=== PATIENT | male | born 2000 | race American Indian/Alaskan Native ===

== ENCOUNTER 2020-03-11 23:11 | Emergency (ER) | payer SELFPAY ==
[2020-03-12] MEDS ORDERED: LIDOCAINE-MPF (1%) 10 MG/1 ML VIAL 5 ML INFILTRATI ONE (00:31)
--- NOTE | 2020-03-12 00:34 | Emergency Department Report ---
<AUDREY PEREZ - Last Filed: 03/12/20 00:32> ED General Adult HPI - General Chief complaint: Neck Pain/Injury Stated complaint: SORE THROAT Time Seen by Provider: 03/12/20 00:28 Source: patient Mode of arrival: Ambulatory Limitations: No Limitations - History of Present Illness Initial comments: 19-year-old -[place] male presents to the emergency room complaining of lymph nodes in his neck and groin area and has been swollen for more than a week with diarrhea. Patient denies any fever no nausea no vomiting no abdominal pain chest pain or shortness of breath. Patient reports he had discharge a couple weeks ago and was treated for chlamydia. Patient states that visit was telemedicine. Patient complains of just not feeling good increase sleepiness decreased appetite. Patient currently takes no medications and has no known drug allergies - Related Data Previous Rx's Medication Instructions Recorded Last Taken Type Amoxicillin/Potassium Clav 1 each PO BID 10 Days #20 tablet 03/12/20 Unknown Rx [Augmentin 875-125 Tablet] Azithromycin [Zithromax TAB] 2,000 mg PO QDAY 1 Days #4 tablet 03/12/20 Unknown Rx methylPREDNISolone [Medrol 4MG 4 mg PO DAILY 6 Days #1 tab.ds.pk 03/12/20 Unknown Rx DOSEPAK (21 tabs)] Allergies Allergy/AdvReac Type Severity Reaction Status Date / Time No Known Allergies Allergy Unverified 03/12/20 00:30 ED Past Medical Hx - Past Medical History Previous Medical History?: No - Surgical History Past Surgical History?: No - Social History Smoking Status: Current Every Day Smoker Substance Use Type: Marijuana - Medications Home Medications: Home Medications Medication Instructions Recorded Confirmed Last Taken Type Amoxicillin/Potassium Clav 1 each PO BID 10 Days #20 tablet 03/12/20 Unknown Rx [Augmentin 875-125 Tablet] Azithromycin [Zithromax TAB] 2,000 mg PO QDAY 1 Days #4 tablet 03/12/20 Unknown Rx methylPREDNISolone [Medrol 4MG 4 mg PO DAILY 6 Days #1 tab.ds.pk 03/12/20 Unknown Rx DOSEPAK (21 tabs)] ED Physical Exam - General Limitations: No Limitations ED Medical Decision Making - Medical Decision Making 19-year-old -[place] male presents to the emergency room complaining of lymph nodes in his neck and groin area and has been swollen for more than a week with diarrhea. Patient denies any fever no nausea no vomiting no abdominal pain chest pain or shortness of breath. Patient reports he had discharge a couple weeks ago and was treated for chlamydia. Patient states that visit was telemedicine. Patient complains of just not feeling good increase sleepiness decreased appetite. Patient currently takes no medications and has no known drug allergies ED Disposition Clinical Impression: Sore throat, LAD (lymphadenopathy), cervical, LAD (lymphadenopathy), inguinal Pharyngitis Qualifiers: Pharyngitis/tonsillitis etiology: unspecified etiology Qualified Code(s): J02.9 - Acute pharyngitis, unspecified Disposition: DC- TO HOME OR SELFCARE Condition: Stable Instructions: Pharyngitis (ED), Sexually Transmitted Diseases in Adolescents (ED), Safe Sex (ED), Sexually Transmitted Diseases (ED), Chlamydia Infection (ED) Additional Instructions: Patient to follow-up with primary care in 2 to 3 days. Patient to follow-up with health department in 2 to 3 days. Patient to rest. Patient to increase water. Patient to avoid strenuous exercise or heavy lifting or sexual activity until cleared by health department and primary care. Patient to practice safe sex after cleared by health department and primary care. Patient to take Tylenol or ibuprofen as needed for pain. Patient to take meds as directed. Patient to return to the ER if condition worsens, changes or new symptoms arise. Prescriptions: Amoxicillin/Potassium Clav [Augmentin 875-125 Tablet] 1 each PO BID 10 Days #20 tablet methylPREDNISolone [Medrol 4MG DOSEPAK (21 tabs)] 4 mg PO DAILY 6 Days #1 tab.ds.pk Azithromycin [Zithromax TAB] 2,000 mg PO QDAY 1 Days #4 tablet Referrals: PRIMARY MD NOÉ [Primary Care Provider] - 2-3 Days KINGSLEY GORE MD [Staff Physician] - 2-3 Days [facility] [Outside] - 2-3 Days <LANA LIU III - Last Filed: 03/12/20 00:48> ED Review of Systems ROS: Stated complaint: SORE THROAT Other details as noted in HPI ED Physical Exam - General Limitations: No Limitations General appearance: alert, in no apparent distress - Head Head exam: Present: atraumatic, normocephalic - Eye Eye exam: Present: normal appearance, PERRL Pupils: Present: normal accommodation - ENT ENT exam: Present: mucous membranes moist, TM's normal bilaterally, normal external ear exam - Expanded ENT Exam Expanded Mouth exam: Present: tongue normal Throat exam: Positive: tonsillar erythema, tonsillar exudate - Neck Neck exam: Present: normal inspection - Respiratory Respiratory exam: Present: normal lung sounds bilaterally. Absent: respiratory distress, wheezes, rales - Cardiovascular Cardiovascular Exam: Present: regular rate, normal rhythm. Absent: systolic murmur, diastolic murmur, rubs, gallop - GI/Abdominal GI/Abdominal exam: Present: soft, normal bowel sounds. Absent: distended, tenderness, guarding - Rectal Rectal exam: Present: deferred - exam: Present: other (Bilateral groin lymphadenopathy noted. Nontender.) - Extremities Exam Extremities exam: Present: normal inspection, full ROM. Absent: tenderness - Back Exam Back exam: Present: normal inspection, full ROM. Absent: tenderness, CVA tenderness (R), CVA tenderness (L), muscle spasm, paraspinal tenderness, vertebral tenderness, rash noted - Neurological Exam Neurological exam: Present: alert, oriented X3 - Psychiatric Psychiatric exam: Present: normal affect, normal mood - Skin Skin exam: Present: warm, dry, intact, normal color. Absent: rash ED Course Vital Signs 03/11/20 03/11/20 23:16 23:17 Temperature 99.0 F 99 F Pulse Rate 95 H Respiratory 20 Rate Blood Pressure 124/83 O2 Sat by Pulse 99 Oximetry - Reevaluation(s) Reevaluation #1: Patient initially evaluated by our nurse practitioner. I assumed care for the patient due to the patient being upset. I evaluated the patient. Patient found to have redness to the oropharynx with exudate. Patient also found to have cervical lymphadenopathy. Patient also found to have inguinal lymph lymphadenopathy. 03/12/20 00:10 Critical care attestation.: If time is entered above; I have spent that time in minutes in the direct care of this critically ill patient, excluding procedure time. ED Disposition Is pt being admited?: No Does the pt Need Aspirin: No Time of Disposition: 00:47
[2020-03-12 01:47] VITALS: BP 122/81
== END 2020-03-12 00:48 | disposition home or self-care (01) ==
LOC: ED 23:11
DX: J02.9 Acute pharyngitis, unspecified (principal); R59.0 Localized enlarged lymph nodes; F17.200 Nicotine dependence, unspecified, uncomplicated; F12.90 Cannabis use, unspecified, uncomplicated; Z79.899 Other long term (current) drug therapy
CPT/HCPCS: 96372; 99282; J0696